=== PATIENT | male | born 1990 | race Caucasian/White ===

== ENCOUNTER 2021-06-02 06:45 | Emergency (ER) | payer OTHER ==
[~2021-06-02] VITALS: Ht 185.4 cm; Wt 124.1 kg
[2021-06-02 07:49] LABS: BASO % 0.6 % (0.0-1.0); EOS # 0.2 10^3/uL (0.0-0.5); EOS % 4.3 % (0.0-3.0); HEMATOCRIT 41.4 % (42.0-52.0); HEMOGLOBIN 14.2 g/dl (13.5-17.5); LYMPH # 1.4 10^3/uL (1.5-5.0); LYMPH % 27.8 % (24.0-44.0); MEAN CORPUSCULAR HEMOGLOBIN 29.2 pg (27.0-33.0); MEAN CORPUSCULAR HGB CONC 34.3 g/dl (32.0-36.5); MEAN CORPUSCULAR VOLUME 85.2 fl (80.0-96.0); MONO # 0.5 10^3/uL (0.0-0.8); MONO % 9.2 % (2.0-8.0); NEUTROPHILS # 2.8 10^3/uL (1.5-8.5); NEUTROPHILS % 57.9 % (36.0-66.0); PLATELET COUNT, AUTOMATED 237 10^3/uL (150-450); RED BLOOD COUNT 4.86 10^6/uL (4.30-6.10); WHITE BLOOD COUNT 4.9 10^3/uL (4.0-10.0)
--- NOTE | 2021-06-02 08:05 | REP ---
INDICATION: CHEST PAIN. COMPARISON: No comparison study. TECHNIQUE: Portable upright AP chest radiograph. FINDINGS: The lungs are well inflated and free of infiltrate. Pleural angles are sharp. Heart size is normal. Pulmonary vasculature is not increased. EKG monitoring electrodes overlie the chest. IMPRESSION: No active disease. <Electronically signed by Blu Aponte > 06/02/21 [id number]
[2021-06-02 08:21] LABS: ALBUMIN 4.1 GM/DL (3.2-5.2); ALT/SGPT 39 U/L (12-78); BILIRUBIN,DIRECT 0.1 MG/DL (0.0-0.2); BILIRUBIN,TOTAL 0.4 MG/DL (0.2-1.0); BLOOD UREA NITROGEN 15 MG/DL (7-18); CARBON DIOXIDE LEVEL 29 MEQ/L (21-32); CHLORIDE LEVEL 105 MEQ/L (98-107); CREATININE FOR GFR 1.05 MG/DL (0.70-1.30); GLOMERULAR FILTRATION RATE > 60.0 (>60); GLUCOSE, FASTING 86 MG/DL (70-100); LIPASE 68 U/L (73-393); NT-PRO BNP 26 PG/ML (<125); POTASSIUM SERUM 4.4 MEQ/L (3.5-5.1); SODIUM LEVEL 138 MEQ/L (136-145); TOTAL PROTEIN 7.2 GM/DL (6.4-8.2)
[2021-06-02] MEDS ORDERED: NS 1,000 ML IV ONE (09:00)
[2021-06-02] MEDS ORDERED: ISOVUE-370 76% 100ML VIAL As Ordered ONE (09:05)
[2021-06-02 09:11] LABS: MAGNESIUM LEVEL 2.3 MG/DL (1.8-2.4)
--- NOTE | 2021-06-02 09:29 | REP ---
INDICATION: chest pain, near syncope COMPARISON: None. TECHNIQUE: Axial contrast enhanced images from the thoracic inlet to the upper abdomen using pulmonary embolus technique with multiplanar re-formations. 75 ml Isovue 370 intravenous contrast material administered without complication. This CT examination was performed using the following dose reduction techniques: Automated exposure control, adjustment of mA and/or kv according to the patient's size, and use of iterative reconstruction technique. FINDINGS: Satisfactory enhancement of the pulmonary vasculature is achieved and no filling defects are identified to suggest pulmonary embolus. Further evaluation of the mediastinum demonstrates normal thoracic aorta, heart and pericardium. The bilateral lung gore are well aerated and clear without consolidation pleural effusion or pneumothorax. Tracheobronchial tree is patent. No nodule or mass lesion is identified. No adenopathy noted. Surrounding musculoskeletal structures intact IMPRESSION: No evidence for pulmonary embolus. No acute mediastinal or pleural parenchymal process. <Electronically signed by Madan Bruner > 06/02/21 [id number]
[2021-06-02 11:00] VITALS: BP 130/71
--- NOTE | 2021-06-03 19:58 | ECGEPIP ---
[facility] - ED Test Date: 2021-06-02 Pat Name: JONAH HALEY Department: Room: - Gender: Male [employer] Hand: TANIKA : 1990 Requested By: Jeremy Castro Order Number: [id number] Reading MD: Clarisse Castellanos Measurements Intervals [place] Rate: 60 P: 24 OK: 162 QRS: 26 QRSD: 98 T: 26 QT: 406 QTc: 406 Interpretive Statements Normal sinus rhythm No prior Electronically Signed on 06-03-2021 19:57:39 EDT by Clarisse Castellanos
== END 2021-06-02 11:15 | disposition home or self-care (01) ==
LOC: M ED 06:45
DX: R07.89 Other chest pain (principal); R06.02 Shortness of breath; R55 Syncope and collapse
CPT/HCPCS: 36415; 71045; 71275; 80048; 80076; 83690; 83735; 83880; 84443; 84484; 85025; 93005; 93041; 94760; 96360; 99285; Q9967

== ENCOUNTER 2022-04-12 06:27 | Day surgery (SDC) | payer OTHER ==
[~2022-04-12] VITALS: Ht 185.4 cm; Wt 127.5 kg
[~2022-04-12 06:27] MED LIST: NS 1,000 ML IV ONE; PANT40TA29; PANT40TA29 PO
[2022-04-12] MEDS ORDERED: LIDOCAINE 2% 100MG/5ML SDV (FOR ANES.) As Ordered ONE (07:03)
[2022-04-12] MEDS ORDERED: fentaNYL 100 MCG/2 ML INJECTION As Ordered ONE (07:03)
[2022-04-12] MEDS ORDERED: propofoL 500 MG/50 ML VIAL As Ordered ONE (07:03)
[2022-04-12] MEDS ORDERED: propofoL 200 MG/20 ML VIAL As Ordered ONE (07:42)
[2022-04-12 08:10] VITALS: BP 131/72
== END 2022-04-12 08:23 | disposition home or self-care (01) ==
LOC: M OPP 06:27
PROVIDERS: ATTEND Internal Medicine Gastroenterology
DX: K62.5 Hemorrhage of anus and rectum (principal); K64.0 First degree hemorrhoids; R19.4 Change in bowel habit; K22.89 Other specified disease of esophagus; K21.00 Gastro-esophageal reflux disease with esophagitis, without bleeding; R07.89 Other chest pain; G47.33 Obstructive sleep apnea (adult) (pediatric); Z99.89 Dependence on other enabling machines and devices; Z95.818 Presence of other cardiac implants and grafts; Z79.899 Other long term (current) drug therapy; F17.220 Nicotine dependence, chewing tobacco, uncomplicated
CPT/HCPCS: 43239; 45380; 88305; J3010

== ENCOUNTER → 2022-04-17 | Outpatient (CLI) | payer OTHER ==
[~2022-04-17] MED LIST changes: -NS 1,000 ML IV ONE
== END ==
LOC: M LABSMTC 10:02
PROVIDERS: ATTEND Anesthesiology
DX: Z01.812 Encounter for preprocedural laboratory examination (principal); Z20.822 Contact with and (suspected) exposure to COVID-19

== ENCOUNTER 2022-04-22 12:06 | Day surgery (SDC) | payer OTHER ==
[~2022-04-22] VITALS: Ht 182.9 cm; Wt 129.2 kg
[~2022-04-22 12:06] MED LIST changes: -PANT40TA29
[2022-04-22] MEDS ORDERED: LR 1,000 ML IV SCH (12:20)
[2022-04-22] MEDS ORDERED: INSULIN LISPRO (NovoLOG) PER UNIT SC PRN (12:20)
[2022-04-22] MEDS ORDERED: ceFAZolin SOD 1 GM in D5W MINI-BAG PLUS 50 ML IV ONE (12:45)
[2022-04-22] MEDS ORDERED: ceFAZolin SOD 2 GM in IV 1 EA IV ONE (12:45)
[2022-04-22] MEDS ORDERED: MIDAZOLAM INJ 2MG/2ML VIAL (J2250 PER 1MG) As Ordered ONE ×2 (13:27→14:21)
[2022-04-22] MEDS ORDERED: fentaNYL 100 MCG/2 ML INJECTION As Ordered ONE (13:27)
[2022-04-22] MEDS ORDERED: LIDOCAINE 1% MDV 20ML VIAL As Ordered ONE (13:49)
[2022-04-22] MEDS ORDERED: propofoL 200 MG/20 ML VIAL As Ordered ONE (14:38)
[2022-04-22] MEDS ORDERED: LIDOCAINE 2% 100MG/5ML SDV (FOR ANES.) As Ordered ONE (14:38)
[2022-04-22 15:41] VITALS: BP 122/66
== END 2022-04-22 16:09 | disposition home or self-care (01) ==
LOC: M SDC 12:06
PROVIDERS: ATTEND Internal Medicine Cardiovascular Disease
DX: Z45.09 Encounter for adjustment and management of other cardiac device (principal); R94.31 Abnormal electrocardiogram [ECG] [EKG]; G47.33 Obstructive sleep apnea (adult) (pediatric); R00.2 Palpitations; R07.9 Chest pain, unspecified; R06.00 Dyspnea, unspecified; K21.9 Gastro-esophageal reflux disease without esophagitis; Z87.891 Personal history of nicotine dependence; G43.909 Migraine, unspecified, not intractable, without status migrainosus; Z79.899 Other long term (current) drug therapy
CPT/HCPCS: 33286; 76000; J0690; J2250; J3010